=== PATIENT | female | born 1990 | race Hispanic/Latino ===

== ENCOUNTER 2020-04-04 22:29 | Emergency (ER) | payer OTHER ==
--- NOTE | 2020-04-04 23:05 | RAD ---
Chest one view HISTORY: Chest pain. Choking. FINDINGS: Cardiac silhouette and pulmonary vasculature are unremarkable. Mediastinum is midline. No confluent airspace consolidation or evidence of pneumothorax. No radiopaque foreign bodies. IMPRESSION : No abnormalities are demonstrated.
--- NOTE | 2020-04-04 23:06 | RAD ---
Neck 2 views HISTORY: Choking. Foreign body. FINDINGS: Epiglottis is normal appearance. Osseous structures are unremarkable. No radiopaque foreign bodies are apparent. IMPRESSION : No abnormalities are demonstrated.
== END 2020-04-04 23:20 | disposition home or self-care (01) ==
LOC: ERS 22:29
DX: R09.89 Other specified symptoms and signs involving the circulatory and respiratory systems (principal)
CPT/HCPCS: 70360; 71045; 99283